=== PATIENT | male | born 2000 | race Caucasian/White ===

== ENCOUNTER 2020-02-23 07:05 | Emergency (ER) | payer MEDICAID, OTHER ==
[~2020-02-23] VITALS: Ht 188 cm; Wt 70.0 kg
[~2020-02-23 07:05] MED LIST: PRED10TA PO
--- NOTE | 2020-02-23 07:35 | NUR ---
PATIENT IS RESTING ON GURNEY WITH FATHER AT THE BEDSIDE. PATIENT IS TALKING RAPIDLY WITH FLIGHT OF IDEAS AND UNABLE TO ANSWER QUESTIONS APPROPRIATELY AT THIS TIME. FATHER STATES THAT PATIENT WAS RECENTLY AT [facility] FOR PSYCHOTIC EPISODE, DISCHARGED 2 DAYS AGO. FATHER STATES THAT PATIENT HAS NO KNOWN PSYCH HX AND THINKS THAT THIS MAY BE DRUG INDUCED FROM RECENT COCAINE AND MARIJUANA USE. PATIENT IS EASILY AGITATED WHEN DISCUSSING PROBLEMS WITH PATIENT AND/OR FATHER.
[2020-02-23] MEDS ORDERED: lamoTRIgine 25mg tablet PO ONE (08:10)
[2020-02-23] MEDS ORDERED: lamoTRIgine 25mg tablet PO SCH (08:10)
[2020-02-23] MEDS ORDERED: LORazepam 1 MG tablet PO ONE ×2 (08:10→15:15)
[2020-02-23] MEDS: lamoTRIgine 25mg tablet PO SCH (08:24)
[2020-02-23 09:35] LABS: CLARITY,URINE CLEAR (Clear); COLOR,URINE YELLOW (Yellow); GLUCOSE, URINE NEGATIVE (Neg); KETONES,URINE >=80 mg/dl (Neg); LEUKOCYTE ESTERASE ,URINE NEGATIVE (Neg); NITRITES, URINE NEGATIVE (Neg); OCCULT BLOOD,URINE NEGATIVE (Neg); PROTEIN,URINE NEGATIVE (Neg); UROBILINOGEN,URINE 0.2 E.U/dL (0.2-1.0)
[2020-02-23 09:36] LABS: BASOPHILS % (AUTO) 0.3 % (0-1); EOSINOPHILS % (AUTO) 0.2 % (0-6); HEMATOCRIT 44.4 % (42.0-52.0); HEMOGLOBIN 15.3 g/dl (14.0-17.9); LYMPHOCYTES # (AUTO) 1.2 X10'3 (1.1-4.8); LYMPHOCYTES % (AUTO) 15.2 % (21-51); MEAN CORPUSCULAR HEMOGLOBIN 29.2 PG (27.0-31.0); MEAN CORPUSCULAR HGB CONC 34.6 g/dL (33.0-36.5); MEAN CORPUSCULAR VOLUME 84.5 FL (78-98); MEAN PLATELET VOLUME 9.7 FL (7.4-10.4); MONOCYTES # (AUTO) 0.6 X10'3 (0-0.9); MONOCYTES % (AUTO) 7.4 % (2-12); NEUTROPHILS # (AUTO) 5.9 X10'3 (1.8-7.7); NEUTROPHILS % (AUTO) 76.9 % (42-75); PLATELET COUNT 224 X10'3 (140-440); RED BLOOD COUNT 5.26 X10'6 (4.70-6.10); WHITE BLOOD COUNT 7.7 X10'3 (4.5-11.0)
--- NOTE | 2020-02-23 09:39 | NUR ---
patient in the room,changing into a green gown.
[2020-02-23 09:42] LABS: UA COLLECTION TYPE CLN CATCH MIDSTREAM
[2020-02-23 09:52] LABS: URINE AMPHETAMINE SCREEN NEGATIVE (Neg); URINE BARBITUATE SCREEN NEGATIVE (Neg); URINE BENZODIAZEPINES SCREEN NEGATIVE (Neg); URINE CANNABINOID SCREEN POSITIVE (Neg); URINE COCAINE SCREEN NEGATIVE (Neg); URINE METHADONE SCREEN NEGATIVE (Neg); URINE OPIATE SCREEN NEGATIVE (Neg); URINE PHENCYCLIDINE SCREEN NEGATIVE (Neg)
[2020-02-23 09:55] LABS: ALANINE AMINOTRANSFERASE 25 U/L (12-78); ALBUMIN 4.7 G/DL (3.4-5.0); ALBUMIN/GLOBULIN RATIO 1.3 (1.1-1.5); ALKALINE PHOSPHATASE 76 IU/L (46-116); ANION GAP 12 (8-16); ASPARTATE AMINO TRANSFERASE 24 U/L (10-37); BILIRUBIN,TOTAL 1.4 MG/DL (0.1-1.0); BLOOD UREA NITROGEN 11 MG/DL (7-18); BUN/CREATININE RATIO 9.3 (5.4-32.0); CALCIUM 9.2 MG/DL (8.5-10.1); CHLORIDE 103 MMOL/L (99-107); CREATININE 1.18 MG/DL (0.60-1.10); GLUCOSE 98 MG/DL (70-104); POTASSIUM 3.9 MMOL/L (3.5-5.1); SODIUM 142 MMOL/L (135-145); TOTAL CARBON DIOXIDE 26.9 MMOL/L (24-32); TOTAL PROTEIN 8.2 G/DL (6.4-8.2); eGFR 78 ML/MIN
[2020-02-23 10:00] LABS: ETHANOL < 0.010 GM/DL (0.0-0.010)
--- NOTE | 2020-02-23 10:30 | NUR ---
Patient arrived to unit from main ER in unit scrubs, accompanied by unit tech. No distress observed. Patient recently received lamictal and Ativan and is very drowsy. denies SI/ HI, A/VH. States he would just like to rest.
--- NOTE | 2020-02-23 12:39 | NUR ---
MOM JENNY CALLED TO CHECK ON PT. ADVISED HE IS SLEEPING CALMLY AND WE WILL LET HIM KNOW SHE CALLED WHEN HE WAKES UP.
--- NOTE | 2020-02-23 13:15 | NUR ---
Patient continues to be resting in bed peacefully.
--- NOTE | 2020-02-23 15:27 | NUR ---
Patient attempted to elope from the unit. He was stopped by security and unit tech and escorted back to bed. He is tangential with pressured speech. Unit tech is now sitting at bedside with patient. Patient received 2 mg of Ativan. Patient's mother called and asked to speak with patient. Patient states that he does not want to speak to mother. Mom informed of this.
[2020-02-23] MEDS ORDERED: haloperidol 5mg tablet PO ONE (16:20)
[2020-02-23] MEDS ORDERED: diphenhydrAMINE 25mg capsule PO ONE (16:20)
--- NOTE | 2020-02-23 16:51 | NUR ---
Patient with some continued agitation after receiving Ativan so Benadryl, and haldol were given per order. Patient was observed brushing his teeth. He proceeds to state he does not want to be here, continues to be tangential and goal oriented to discharge. Reassured patient that [facility] will come and evaluate patient.
--- NOTE | 2020-02-23 18:29 | NUR ---
Patient's father: Jason- [phone]. Father at bedside with patient. patient slightly agitated. [facility] now to father.
--- NOTE | 2020-02-23 18:45 | NUR ---
Patient is in bed being visited by his father. Patient exhibits anxiety. This screenplay writer will interview patient when father leaves.
--- NOTE | 2020-02-23 19:30 | NUR ---
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 He describes a possible psychotic break. Patient has no psych history. Patient had a close friend recently. Steroids found in patients room at home. Patients mother who lives in [place] has an extensive psychiatric history. Recent psych eval at [facility] in [place].
--- NOTE | 2020-02-23 19:35 | NUR ---
Patient interviewed by this check writer salesperson. The patient is oriented to person and place. Patient exhibits tangential speech. Patients speech is soft, his eye contact is poor. The patient rolls over and covers self up.
--- NOTE | 2020-02-23 21:13 | NUR ---
[facility] RN Shaggy attempted to interview this patient. The patient rolled over onto his left side and went back to sleep. [facility] will atempt interview tomorrow.
--- NOTE | 2020-02-23 23:51 | NUR ---
Patient sleeping supine in bed.
--- NOTE | 2020-02-24 00:38 | NUR ---
Patient sleeping on his right side. In view from nursing station. Close observation and frequent rounding for patient safety.
--- NOTE | 2020-02-24 05:51 | NUR ---
Patient is sleeping quietly in a low fowlers position
[2020-02-24] MEDS ORDERED: haloperidol lactate 5mg/ml inj ONE (06:28)
[2020-02-24] MEDS ORDERED: diphenhydrAMINE 50 mg/ml inj ONE (06:28)
[2020-02-24] MEDS ORDERED: LORazepam 2 mg/ml vial ONE (06:29)
--- NOTE | 2020-02-24 06:48 | NUR ---
Patient continues to have flight of ideas and is tangential. He is agitated and is seen pacing in the unit, and doing high jumps. He appears paranoid. Patient was asked if he would take oral medications and patient refused. IM medications were given. No distress observed. Patient is now resting in bed. He is responding to internal stimuli and/or talking to himself. Does not answer assessment questions appropriately.
--- NOTE | 2020-02-24 08:08 | NUR ---
Patient is laying in bed in the supine position, no distress observed. Patient refused breakfast.
--- NOTE | 2020-02-24 09:46 | NUR ---
Patient continues to be resting in bed peacefully. No distress observed.
--- NOTE | 2020-02-24 10:07 | NUR ---
Patient's father called. He states that the patient has been taking testosterone. He states he is concerned that this is exacerbating his symptoms.
--- NOTE | 2020-02-24 10:10 | NUR ---
Patient's mother called and inquired about the patient x2 this morning. She is labile and needs to be redirected often. Informed her patient is sleeping and asked her to call back this afternoon.
--- NOTE | 2020-02-24 11:20 | NUR ---
pts mom called ale phone: [phone]. pt is with emely at this time being evaluated. will have pt call her after eval done.
--- NOTE | 2020-02-24 11:33 | NUR ---
JENNY CALLED AGAIN AND ASKED IF EVALUATION WAS DONE. SAID NO, AND WILL HAVE [employer] CALL HER IF NEEDED.
--- NOTE | 2020-02-24 12:17 | NUR ---
Patient asked to have his hair braided and this was accomodated. He is seen exercising and stretching in his bed. He is now observed talking on the phone to his Aunt Heather. Patient's mother has called repeatedly today and has been making accusations about staff lying to her. Mother was redirected and told she would be notified once there is new information in patient's plan of care.
--- NOTE | 2020-02-24 12:29 | NUR ---
Registration is at patient's bedside. Patient is filling out paperwork right now.
--- NOTE | 2020-02-24 12:46 | NUR ---
Patient's mother called back again and patient took the phone call. He is now speaking on the phone appropriately with her.
[2020-02-24] MEDS ORDERED: nicotine 21mg patch - 24 hr TD ONE (12:55)
--- NOTE | 2020-02-24 13:09 | NUR ---
Patient is sitting up in bed, eating lunch, no distress observed.
--- NOTE | 2020-02-24 13:10 | NUR ---
Emmanuel from [facility] is at bedside speaking to patient. Patient is tearful. Tissues offered to patient. Patient is now laying in bed peacefully. [facility] has decided to keep this patient on a hold.
--- NOTE | 2020-02-24 13:37 | NUR ---
Patient requested information on the 5150 hold. Explained the course of care to patient and potential outcomes. Patient verbalized understanding.
--- NOTE | 2020-02-24 14:09 | NUR ---
[facility] employee and father are at bedside helping patient fill out [employer] paperwork.
--- NOTE | 2020-02-24 14:10 | NUR ---
PTS MOTHER CALL AND WAS UPSET BECAUSE NOBODY HAD CALLED HER AFTER THE EVALUATION WAS DONE. SAID I WILL HAVE THE NURSE CALL YOU WHEN SHE IS AVAILABLE
--- NOTE | 2020-02-24 15:16 | NUR ---
JENNY CALLED UPSET THAT KNOW ONE HAS CALLED HER BACK RE: EVALUATION. SPOKE WITH [facility] AND TOLD ME TO TELL HER, HE WILL CALL HER IF APPROPRIATE, PT GOT ANGRY WITH THIS ANSWER AND HUNG UP ON ME.
--- NOTE | 2020-02-24 15:20 | NUR ---
Patients mother ale called. She requsted that she talk to the nursing clinical supervisor as she is not getting calls and when she calls her son is sleeping. She requests information. Call transfered to nursing clinical supervisor at mothers request.
[2020-02-24] MEDS ORDERED: LORazepam 1 MG tablet PO ONE ×2 (16:55→23:15)
[2020-02-24] MEDS ORDERED: haloperidol 5mg tablet PO ONE (16:55)
--- NOTE | 2020-02-24 17:32 | NUR ---
PT PRESENTS HYPOMANIC AEB INCREASED RESTLESSNESS, PT TRYING TO CLEAN FLOORS, EXERCISING TO THE POINT OF REQUIRING REDIRECT AND TAKING TO SELF WHEN NONE PRESENT. REVIEW OF eMAR REFLECTS PT REFUSED AM MOOD STABILIZER. JASSON, PRIMARY RN NOTIFIED.
[2020-02-24] MEDS ORDERED: lamoTRIgine 25mg tablet PO ONE (17:40)
--- NOTE | 2020-02-24 19:00 | NUR ---
PT AWAKE IN BED TALKING WITH FATHER AND STAFF. HYPOMANIC, CICRUMSTANICAL BUT COOPERATIVE AND PLEASANT
[2020-02-24] MEDS ORDERED: diphenhydrAMINE 25mg capsule PO ONE (19:30)
--- NOTE | 2020-02-24 20:35 | NUR ---
Pt got up to go to the restroom, opened the bathroom door then kept going and eloped out the back door of the department, Security radioed and staff watched him run out the door and he ran around the corner, north towards [facility] and then headed West.
--- NOTE | 2020-02-24 20:39 | NUR ---
[place] [employer] phoned to inform them of his elopement while on a 5150 hold. Report taken and the dispatcher reports she will send units to search for him.
[2020-02-24] MEDS ORDERED: divalproex sod 250mg ER (24-hour) tablet PO SCH (21:00)
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
--- NOTE | 2020-02-24 21:35 | NUR ---
PTS VITALS WNL
[2020-02-24] MEDS ORDERED: haloperidol lactate 5mg/ml inj IM ONE (21:45)
[2020-02-24] MEDS ORDERED: LORazepam 2 mg/ml vial IM ONE (21:45)
[2020-02-24] MEDS ORDERED: diphenhydrAMINE 50 mg/ml inj IM ONE (21:45)
--- NOTE | 2020-02-24 22:00 | NUR ---
PT GIVEN 2 MG ATIVAN IM, 10 MG HALDOL IM, 50 MG BENADRYL IM. PT TOLERATED WELL AND WELCOMED THE INJECTIONS. "PLEASE JUST PUT ME OUT"
[2020-02-24 22:05] VITALS: BP 120/77
--- NOTE | 2020-02-24 23:00 | NUR ---
PT STILL AWAKE AND GETTING UP CONSTANTLY. REPORTS FEELING LIKE HE CAN'T STOP MOVING. DR. FROST NOTIFIED, 2MG ATIVAN PO GIVEN
--- NOTE | 2020-02-25 00:21 | NUR ---
PT IS STILL AWAKE AND SAYING HE IS UNABLE TO SLEEP. SPRIGGER SITS WITH PATIENT PERIODICALLY AND TALKS TO HIM, CALMS HIM DOWN, AND REASSURES HIM.
--- NOTE | 2020-02-25 00:45 | NUR ---
PT UP TO THE THE RESTROOM
--- NOTE | 2020-02-25 01:17 | NUR ---
PT FINALLY FALLS ASLEEP ON BACK RR 16
--- NOTE | 2020-02-25 03:00 | NUR ---
PT ASLEEP ON BACK RR 14 BREATHS EVEN AND UNLABORED
--- NOTE | 2020-02-25 05:05 | NUR ---
PT REMAINS ASLEEP RR 16
--- NOTE | 2020-02-25 08:09 | NUR ---
MOTHER, JENNY, CALLED FOR CONDITION REPORT.
--- NOTE | 2020-02-25 10:25 | NUR ---
DAD HERE TO VISIT FOR APPROX 20 MINUTES TO CHECK ON SON. DAD STATES THAT HE HAS A FAMILY EVENT TODAY AND WILL BE GONE FROM HOME.
[2020-02-25] MEDS: lamoTRIgine 25mg tablet PO SCH (10:34)
--- NOTE | 2020-02-25 10:49 | NUR ---
TALKING ON PHONE WITH BROTHER. PATIENT CONTINUES TO REQUEST DISCHARGE/LEAVE HOSPITAL. PATIENT INFORMED THAT HE WILL HAVE TO BE RE-EVALUATED BY MENTAL HEALTH AND MAY NEED TO STAY UNTIL HE IS FEELING BETTER. RESTING IN BED.
--- NOTE | 2020-02-25 11:08 | NUR ---
MOTHER CALLED IN TO SPEAK WITH PATIENT. CONVERSATION IS CORDIAL.
--- NOTE | 2020-02-25 11:30 | NUR ---
PATIENT IS WALKING AROUND UNIT, ASKING WHEN HE CAN LEAVE. TC FROM AUNT, TO SPEAK WITH PATIENT. AUNT DIRECTED TO CALL BACK LATER, SINCE PATIENT IS AGITATED AND HAS RECEIVED MULTIPLE CALLS ALREADY THIS MORNING.
--- NOTE | 2020-02-25 12:10 | NUR ---
Report recieved from ERIKA Mattson, assumed care. pt. up to nurses station continually interrupting report asking to be re-evaluated for release. Pt. appears agitated but is calm and returns to bed on request. informed pt. he will have to wait to talk to .
--- NOTE | 2020-02-25 12:10 | NUR ---
Note arsalan in ED - 02/25/20 at 1438 by MASHA Recieved report from ERIKA Mattson, assumed care. Pt. up to nurses station asking to talk to behavioral health to be evaluated for release. Pt. informed he will have to wait. Pt. appears agitated but re-directs back to bed.
--- NOTE | 2020-02-25 13:02 | NUR ---
Recieved calls from father and older brother. Father very understanding of process and agreed it is better to let pt. rest. Brother asking about plan for pt. was very worried about his brother and started to cry. Assured brother that he is being well cared for and of the process. demonstrated understanding. Pt. currently talking with friends on hospital phone. Pt. appears calm and talking quietly.
--- NOTE | 2020-02-25 14:38 | NUR ---
Pt. laying on right side with eyes closed.
--- NOTE | 2020-02-25 15:22 | NUR ---
Recieved call from DARYL Long, pt. has been accepted and can go to room after bed is cleaned.
--- NOTE | 2020-02-25 15:30 | NUR ---
Accepted at [facility] at 1512, Dr. Bourgeois. Bed will be ready around 1630
--- NOTE | 2020-02-25 16:53 | NUR ---
pt. up demanding to see his belongings. informed pt. that he would be going to mental health and they would be going through his things when he gets there. becoming increasingly agitated and talking about leaving. Pt. trying to cause arguements and pacing in front of nurses station.
[2020-02-26] MEDS ORDERED: NO HOME MEDS (10:46)
== END 2020-02-25 17:25 ==
LOC: ER 07:06
DX: F31.10 Bipolar disorder, current episode manic without psychotic features, unspecified (principal); F17.200 Nicotine dependence, unspecified, uncomplicated; F12.90 Cannabis use, unspecified, uncomplicated; F14.90 Cocaine use, unspecified, uncomplicated; F19.90 Other psychoactive substance use, unspecified, uncomplicated; Z88.5 Allergy status to narcotic agent; Z79.899 Other long term (current) drug therapy
CPT/HCPCS: 36415; 80053; 80305; 80320; 81003; 84443; 85025; 96372; 99285; J1200; J1630; J2060; Q0163